=== PATIENT | female | born 1940 | race American Indian/Alaskan Native ===

== ENCOUNTER 2018-02-20 09:41 | Outpatient (CLI) | payer MEDICARE, OTHER ==
--- NOTE | 2018-02-21 15:42 | Magnetic Resonance Report ---
BILATERAL BREAST MRI WITHOUT AND WITH CONTRAST: 02/20/18 09:41:00 CLINICAL: Breast cancer survivor status post left mastectomy. History of a right excisional breast biopsy February 2012 with pathology revealing ALH. She had a left modified radical mastectomy in 1991. No history of chemoradiation therapy or adjuvant hormonal therapy. COMPARISON:08/07/17 right mammogram. TECHNIQUE: Axial 1.0-mm T1 without, axial high resolution 2.0-mm T2 and axial 1.0-mm dynamic Vibrant high-resolution postcontrast T1 fat saturation sequences on a 1.5 Cha magnet. The examination was performed with an 8 channel dedicated [place] breast coil. Post processing with CAD and subtraction was performed on an [employer] workstation. 14.0 cc of Multihance was injected without incident for the contrast portion of the exam. Consent was obtained prior to the administration of the contrast. FINDINGS: Right: Minimal background parenchymal enhancement. No mass or suspicious enhancement. Several right axillary lymph nodes with benign morphology. No suspicious lymph nodes. Left: Status post left mastectomy with a moderate amount of residual soft tissue of the left chest wall. No mass or suspicious enhancement. No suspicious lymph nodes. IMPRESSION: Negative study status post left mastectomy. BI-RADS 1 - - Negative
== END 2018-02-20 09:42 | disposition home or self-care (01) ==
LOC: SPVIMAG 09:41
PROVIDERS: ATTEND Surgery
DX: D24.1 Benign neoplasm of right breast (principal); Z85.3 Personal history of malignant neoplasm of breast; Z90.12 Acquired absence of left breast and nipple
CPT/HCPCS: A9577; C8908; 77059

== ENCOUNTER 2020-08-17 09:48 | Outpatient (CLI) | payer MEDICARE ==
--- NOTE | 2020-08-17 10:37 | Mammography Report ---
DIGITAL SCREENING MAMMOGRAM WITH CAD, 08/17/2020 CLINICAL INFORMATION / INDICATION: Routine screening mammography. TECHNIQUE: Digital right 2D mammography was obtained in the craniocaudal and mediolateral oblique pr ojections. This examination was interpreted with the benefit of Computer-Aided Detection analysis. COMPARISON: Prior mammograms 08/13/2019 and 08/11/2018 FINDINGS: Breast Density: There are scattered areas of fibroglandular density. No dominant mass, suspicious calcifications, or architectural distortion in the right breast. There is stable benign postsurgical change in the right breast. There has been no significant change compared with the prior examinations. IMPRESSION: No mammographic evidence of malignancy. Follow up recommendation: Routine yearly BI-RADS Category 2: Benign. A "normal" or negative report should not discourage follow up or biopsy of a clinically significant f inding. A written summary of these findings will be mailed to the patient. The patient will be entered into a mammography reporting system which will generate a reminder letter for the patient's next appointmen t at the appropriate interval. The [employer] recommends yearly mammograms starting at age 40 and continuing as l eduardo as a woman is in good health. Breast MRI is recommended for women with an approximate 20-25% or greater lifetime risk of breast cancer, including women with a strong family history of breast or [place] cancer or who have been treated for Hodgkin's disease. Signer Name: Ayaka Fagan MD Signed: 08/17/2020 10:32 AM Workstation Name: [employer]
== END 2020-08-17 09:49 | disposition home or self-care (01) ==
LOC: SPVWC 09:48
PROVIDERS: ATTEND Surgery
DX: Z12.31 Encounter for screening mammogram for malignant neoplasm of breast (principal); N64.89 Other specified disorders of breast